=== PATIENT | male | born 1990 | race Two or more races ===

== ENCOUNTER → 2018-08-15 | Emergency (ER) | payer OTHER | END | disposition left against medical advice (07) | LOC: ER 15:46 | DX: Z53.21 Procedure and treatment not carried out due to patient leaving prior to being seen by health care provider (principal) ==

== ENCOUNTER 2021-04-04 05:09 | Emergency (ER) | payer OTHER ==
[~2021-04-04] VITALS: Ht 177.8 cm; Wt 90.7 kg
== END 2021-04-04 13:00 | disposition home or self-care (01) ==
LOC: ER 05:09
DX: N20.0 Calculus of kidney (principal)